=== PATIENT | male | born 2000 | race Hispanic/Latino ===

== ENCOUNTER 2024-01-29 11:46 | Emergency (ER) | payer SELFPAY ==
[~2024-01-29] VITALS: Ht 162.6 cm; Wt 59.0 kg
[2024-01-29 12:57] LABS: RAPID GROUP A STREP negative (NEGATIVE)
[2024-01-29] MEDS ORDERED: ketOROlac 15MG/ML VIAL (15MG/ML) IM ONE (13:00)
[2024-01-29 13:08] LABS: SARS-CoV-2, RNA, NAAT NEGATIVE SARS CoV-2 (NEGATIVE)
[2024-01-29 13:16] LABS: INFLUENZA TYPE A Negative For Type A (NEGATIVE); INFLUENZA TYPE B Negative For Type B (NEGATIVE)
[2024-01-29] MEDS: 0.9%NACL 1000ML 1,000 ML IV ONE (13:36)
[2024-01-29] MEDS: acetaMINOPHEN 500 MG TABLET PO ONE (13:40)
[2024-01-29 13:45] LABS: BASOPHILS # (AUTO) 0.02 K/uL (0.00-0.20); BASOPHILS % (AUTO) 0.1 % (0.0-5.0); IMMATURE GRANULOCYTE ABSOLUTE 0.09 K/uL (0-1); LYMPHOCYTES # (AUTO) 0.9 K/uL (1.0-4.8); LYMPHOCYTES % (AUTO) 4.8 % (21.0-51.0); MEAN CORPUSCULAR HGB CONC 34.5 g/dL (32.0-36.0); MEAN CORPUSCULAR VOLUME 89.7 fL (79-99); MONOCYTES % (AUTO) 5.4 % (3.0-13.0); NEUTROPHILS # (AUTO) 15.8 K/uL (1.8-7.7); NEUTROPHILS % (AUTO) 89.2 % (40.0-77.0); PLATELET COUNT (AUTO) 182 K/uL (130-400); RED BLOOD CELL COUNT(AUTO) 4.68 MIL/uL (4.50-6.20); RED CELL DISTRIBUTION WIDTH 12.8 % (11.0-15.5); WHITE BLOOD COUNT (AUTO) 17.8 K/uL (4.8-10.8)
[2024-01-29 13:58] LABS: CREATININE 0.8 mg/dL (0.5-1.3); POTASSIUM 4.2 mmol/L (3.5-5.1)
[2024-01-29] MEDS: cefTRIAXone 1G VIAL ONE (14:45)
[2024-01-29] MEDS: cefTRIAXone 1G VIAL IVPB ONE (14:51)
[2024-01-29 15:07] VITALS: BP 110/68; PULSE 76; RESP 20; TEMP 99.1; O2SAT 98
[2024-01-29] MEDS ORDERED: AMOX-426 PO (15:30)
== END 2024-01-29 15:37 | disposition home or self-care (01) ==
LOC: EDH 11:46 → EDBD 11:46 → EDH 15:37
DX: J02.9 Acute pharyngitis, unspecified (principal); E86.0 Dehydration; B34.9 Viral infection, unspecified; F41.9 Anxiety disorder, unspecified; Z90.89 Acquired absence of other organs
CPT/HCPCS: 99283; 96374; 87635; 80048; 85025; 87880; 87804 ×2; 36415; J7030; J0696